=== PATIENT | male | born 1945 | race African-American/Black ===

== ENCOUNTER 2016-10-27 08:27 | Emergency (ER) | payer OTHER ==
--- NOTE | 2016-10-27 11:49 | PROVIDER DOCUMENTATION ---
HPI-General Adult - General Chief Complaint: Neck Pain Stated Complaint: ABD/BACK /NECK PAIN Time Seen by Provider: 10/27/16 11:45 Home Medications: Home Medication List Medication Instructions Recorded Confirmed Last Taken Type Cyclobenzaprine [Flexeril] 10 mg PO TID #20 tablet 10/27/16 Unknown Rx Dicyclomine [Bentyl] 10 mg PO TID AC #30 capsule 10/27/16 Unknown Rx Insulin Detemir [Levemir] 30 unit SUBQ QAM 10/27/16 10/27/16 10/27/16 History Insulin Lispro [Humalog] 6 unit SQ TID 10/27/16 10/27/16 10/27/16 History Losartan [Cozaar] 0 mg PO DAILY 10/27/16 10/27/16 10/27/16 History Ondansetron Odt [Zofran 8Mg Odt] 8 mg PO Q8H PRN PRN #20 tablet 10/27/16 Unknown Rx - History of Present Illness -Gen Adult Nature of Presenting Problems: 71 y/o AAM c hx of IDDM, c/o neck pain x 3 days and abdominal pain x 1 month. Denies nausea, vomiting or diarrhea. States the pain in his abdomen mostly in the LLQ, no radiation. Denies constipation or hard stools. Denies fevers or chills. Neck pain on the right side, no injury, worse with turning the head to the right or flexing the neck. States woke up with it one morning. Has not taken anything for this. Review of Systems - Adult - REVIEW OF SYSTEMS - ADULT Constitutional: reports: no symptoms reported, fatique. denies: chills, fever Eyes: reports: no symptoms reported. denies: decreased vision, blurred vision, double vision, eye pain Ears, Nose, Mouth & Throat: reports: no symptoms reported. denies: ear pain, nose pain, throat pain Cardiovascular: reports: no symptoms reported. denies: chest pain, palpitations Respiratory: reports: no symptoms reported. denies: cough, shortness of breath , wheezing Gastrointestinal: reports: abdominal pain. denies: diarrhea, nausea, vomiting Genitourinary: reports: no symptoms reported. denies: dysuria, discharge, frequency, incontinence Musculoskeletal: reports: no symptoms reported. denies: muscle aches Integumentary: reports: no symptoms reported. denies: rash Neurological: reports: no symptoms reported. denies: dizziness/vertigo, headache/migraines Psychiatric: reports: no symptoms reported Endocrine: reports: no symptoms reported Hematologic/Lymphatic: reports: no symptoms reported Allergic/Immunologic: reports: no symptoms reported All Other Systems: Reviewed and Negative Past History - Adult - PAST MEDICAL HISTORY-ADULT Review of Records: reports: Old Records Reviewed, Nursing Assessment Review, Medications Reviewed, Social history reviewed & non-contributory. Major Childhood Illnesses: reports: denies history Cardiovascular: reports: denies history Respiratory: reports: denies history Gastrointestinal: reports: denies history Genitourinary: reports: denies history Musculoskeletal: reports: denies history Neurological: reports: denies history Endocrine/Immune: reports: Diabetes Diabetes controlled by:: Insulin Dependent Other Conditions: reports: denies history - PRIOR SURGERIES/PROCEDURES Surgical/Procedure History: reports: other (prostectomy ) - IMMUNIZATION STATUS Childhood Immunizations: See Nurse Assessment Flu Vaccine: See Nurse Assessment - FAMILY HISTORY Family History: reviewed, not pertinent - SOCIAL HISTORY Smoking: denies Substance Use: none/never Alcohol Use Frequency: never Physical Exam-General - PHYSICAL EXAM-ADULT Initial Vital Signs Reviewed: Yes - CONSTITUTIONAL General Appearance: appears well, alert, no apparent distress - EYES Eyes: PERRL/EOMI, pink conjunctivae - HEAD, EARS, NOSE, MOUTH & THROAT HENMT: normocephalic/atraumatic, moist mucous membranes, normal ENT inspection, TMs normal, pharynx normal - NECK Neck: non-tender, full range of motion, supple, normal inspection - RESPIRATORY Respiratory: chest non-tender, lungs clear, normal breath sounds, no pleuratic chest pain, no respiratory distress, no accessory muscle use. negative: respiratory distress, decreased breath sounds, accessory muscle use, crackles, rales, rhonchi, wheezing - CARDIOVASCULAR Cardiovascular: normal peripheral pulses, regular rate, rhythm - GASTROINTESTINAL (ABDOMEN) Abdominal Exam: normal bowel sounds, non tender, soft, no organomegaly, no pulsatile mass. negative: abdominal bruit, abnormal bowel sounds, distended, guarding, rigid, tenderness - MUSCULOSKELETAL Back Exam: normal inspection, no vertebral tenderness, muscle spasm (right neck , trapizius muscle spasm) Peripheral Pulses: radial (R): 2+, radial (L): 2+ - SKIN Integumentary: normal color, normal turgor, warm/dry - NEUROLOGIC Neurologic: grossly normal, no motor/sensory deficits - PSYCHIATRIC Psych/Mental Status: normal mood/affect, normal thought content, normal thought process, oriented x 3 Progress - PLAN OF CARE/RESULTS Progress/Plan/Lab Results: Vital Signs Temp Pulse Resp BP Pulse Ox 10/27/16 12:16 98.3 F 85 18 146/97 100 10/27/16 09:16 98.1 F 90 20 154/94 98 Insulin Detemir [Levemir] 30 unit SUBQ QAM 10/27/16 Insulin Lispro [Humalog] 6 unit SQ TID 10/27/16 Losartan [Cozaar] 0 mg PO DAILY 10/27/16 I&O 10/26/16 10/27/16 10/28/16 06:59 06:59 06:59 Output Total 50 Balance -50 Laboratory 10/27/16 10/27/16 10/27/16 12:30 12:30 11:48 WBC 8.99 RBC 3.98 L Hgb 10.4 L Hct 33.6 L MCV 84.4 MCH 26.1 L MCHC 31.0 L RDW Std Deviation 17.2 H Plt Count 368 MPV 9.0 Immature Gran % (Auto) 0.2 Neut % (Auto) 64.0 Lymph % (Auto) 17.9 L [place] % (Auto) 11.3 H Eos % (Auto) 6.3 Baso % (Auto) 0.3 Immature Gran # (Auto) 0.02 Neut # (Auto) 5.74 Lymph # (Auto) 1.61 [place] # (Auto) 1.02 H Eos # (Auto) 0.57 Baso # (Auto) 0.03 Sodium 136 Potassium 4.9 Chloride 103 Carbon Dioxide 18 L Anion Gap 15 BUN 9 Creatinine 0.8 Estimated GFR/1.73 m2 > 60 Glucose 208 H Calcium 9.4 Total Bilirubin 0.64 AST 46 H ALT 13 Alkaline Phosphatase 155 H Total Protein 7.7 Albumin 3.5 Urine Source CLEAN CATCH Urine Color YELLOW Urine Turbidity CLEAR Urine pH 5.5 Ur Specific [place] 1.026 Urine Protein TRACE A Ur Glucose (Stick) 1000 A Ur Ketones (Stick) NEGATIVE Urine Blood NEGATIVE Urine Nitrite NEGATIVE Urine Bilirubin NEGATIVE Urobilinogen Dipstick NORMAL Urine Leukocytes SMALL A Urine WBC (Auto) 10-20 A Urine RBC (Auto) <10 U Epithel Cells (Auto) <10 Urine Bacteria (Auto) 1+ Orders Category Date Time Status Finger Stick Blood Sugar (ED) DIRECTED Care 10/27/16 11:01 Active CBC WITH ELECTRONIC DIFF [HEME] Stat Lab 10/27/16 12:30 Completed CMP [COMPREHENSIVE METABOLIC PANEL] [CHEM] Stat Lab 10/27/16 12:30 Results UA Reflex [URINALYSIS W/POSS RFLX CULT] [URINALYSIS] Lab 10/27/16 11:48 Completed Stat URINE CULTURE [RM] Routine Lab 10/27/16 12:24 Received Orders Category Date Time Status Finger Stick Blood Sugar (ED) DIRECTED Care 10/27/16 11:01 Active CBC WITH ELECTRONIC DIFF [HEME] Stat Lab 10/27/16 12:30 Completed CMP [COMPREHENSIVE METABOLIC PANEL] [CHEM] Stat Lab 10/27/16 12:30 Results UA Reflex [URINALYSIS W/POSS RFLX CULT] [URINALYSIS] Lab 10/27/16 11:48 Completed Stat URINE CULTURE [RM] Routine Lab 10/27/16 12:24 Received Dicyclomine [Bentyl] Med 10/27/16 13:49 Once 20 mg IM NOW ONE Departure - Departure Time of Disposition Order: 13:48 DIAGNOSIS: Trapezius muscle spasm Abdominal pain Qualifiers: Abdominal location: generalized Qualified Code(s): R10.84 - Generalized abdominal pain Disposition: HOME 01 Certified Medical Emergency: Emergent Condition: Stable Additional Instructions: Follow up with Dr. Wilson [facility] ED Follow Up Instructions: You have been treated by a care provider in the Emergency Department. These instructions are being provided to you so you can have an understanding of how to care for yourself upon discharge. Upon discharge from the Emergency Department, you are responsible for making arrangements for follow-up care by a physician of your choice. Take all prescribed medications as directed. Return to the Emergency Department immediately for any new or worsening symptoms. You may call the Physician Referral phone number at [phone] to obtain a list of Physicians who are taking new patients. Prescriptions: Dicyclomine [Bentyl] 10 mg PO TID AC #30 capsule Cyclobenzaprine [Flexeril] 10 mg PO TID #20 tablet Ondansetron Odt [Zofran 8Mg Odt] 8 mg PO Q8H PRN PRN #20 tablet PRN Reason: Nausea Attestation - Physician/ PATSY Attestation Patient care was provided by Advanced Practice Provider:: Yes Advanced Practice Provider:: Marcela Macias Advanced Practice Provider documentation review:: The Mid-level provider documentation, treatment plan and medical decision making was reviewed by the physician who agrees with all treatment and medical decision making by the MLP.
[2016-10-27 12:05] LABS: URINE MICRO REVIEW NEEDED? NO; URINE SOURCE CLEAN CATCH
[2016-10-27 12:10] LABS: BILIRUBIN URINE NEGATIVE (NEGATIVE); BLOOD URINE NEGATIVE (NEGATIVE); COLOR YELLOW; GLUCOSE URINE 1000 mg/dL (NEGATIVE); LEUKOCYTES URINE SMALL (NEGATIVE); NITRITE URINE NEGATIVE (NEGATIVE); PH URINE 5.5; PROTEIN URINE TRACE mg/dL (NEGATIVE); SP GRAVITY URINE 1.026; TURBIDITY URINE CLEAR (CLEAR); UROBILINOGEN URINE NORMAL (NORMAL)
[2016-10-27 12:11] LABS: UR EPITHELIAL CELLS <10 /HPF (<10); URINE BACTERIA 1+ /HPF; URINE CULTURE NEEDED? YES; URINE RBC <10 /HPF (<10)
[2016-10-27 12:17] VITALS: BP 146/97
[2016-10-27 12:51] LABS: MANUAL DIFF NEEDED? NO
[2016-10-27 12:58] LABS: BASO% 0.3 % (0.0-0.8); EOS# 0.57 X1000 (0.0-0.7); EOS% 6.3 % (0.0-10.0); HEMATOCRIT 33.6 % (42.0-52.0); HEMOGLOBIN 10.4 g/dL (14.0-18.0); IMM GRAN# 0.02 X1000 (0.0-0.04); IMM GRAN% 0.2 % (0.0-0.5); LYMPH# 1.61 X1000 (1.2-3.4); LYMPH% 17.9 % (20.5-51.1); MCH 26.1 PG (27-31); MCV 84.4 FL (81-99); MONO# 1.02 X1000 (0.11-0.59); MONO% 11.3 % (1.7-9.3); PLT 368 X1000 (130-400); RBC 3.98 XMIL (4.7-6.1)
[2016-10-27 13:11] LABS: AGAP 15; BUN 9 mg/dL (8-22); CALCIUM 9.4 mg/dL (8.8-10.2); CHLORIDE 103 mmol/L (98-107); POTASSIUM 4.9 mmol/L (3.5-5.1); SODIUM 136 mmol/L (136-145); TCO2 18 mmol/L (25-35); TOTAL BILIRUBIN 0.64 mg/dL (0.20-1.00); TOTAL PROTEIN 7.7 g/dL (6.3-8.3)
[2016-10-27 13:36] LABS: ALBUMIN 3.5 g/dL (3.5-5.0); ALKALINE PHOSPHATASE 155 U/L (32-122); GOT 46 U/L (10-34); GPT 13 U/L (10-44)
[2016-10-27] MEDS ORDERED: BENTYL IM ONE (13:49)
[2016-10-27 13:53] LABS: COSMO 279
== END 2016-10-27 14:18 | disposition home or self-care (01) ==
LOC: ED 08:27
DX: M62.838 Other muscle spasm (principal); R10.84 Generalized abdominal pain; M54.2 Cervicalgia; R10.32 Left lower quadrant pain; R53.83 Other fatigue; E11.9 Type 2 diabetes mellitus without complications; Z79.4 Long term (current) use of insulin; Z79.899 Other long term (current) drug therapy
CPT/HCPCS: 80053; 81001; 85025; 87088; J0500